=== PATIENT | male | born 1985 | race Caucasian/White ===

== ENCOUNTER 2016-07-05 07:11 | Day surgery (SDC) | payer OTHER, BC ==
[2016-06-25 09:11] VITALS: BMI 24.0
[~2016-07-05] VITALS: Ht 165.1 cm; Wt 67.3 kg
[~2016-07-05 07:11] MED LIST: ACET1TAB84 PO; ALBUAER2 INH; ARIP1TAB8 PO; BND25X PO; CHOL100010 PO; CLC100 PO; ECHCCRMCMP TOP; ESCI10TA17 PO; FLUT0.15 NAE; HYDR0.5T PO; IVIG IV; LACT3000 PO; LACTATED RINGER'S 1000ML 1,000 ML IV SCH; LEVO25TA5 PO; MONT1TAB3 PO; PRLSR20 PO; SALI1SPR3 NAE
[2016-07-05] MEDS ORDERED: LIDOCAINE HCL 2% 2 ML VIAL (20MG/ML) ONE (07:24)
[2016-07-05] MEDS ORDERED: PROPOFOL IV EMULSION 10 MG/ML 20 ML VIAL IV ONE (07:24)
[2016-07-05] MEDS ORDERED: ONDANSETRON INJ 2 MG/ML 2 ML VIAL ONE ×2 (07:24→10:21)
[2016-07-05] MEDS ORDERED: FENTANYL CITRATE INJ 50 MCG/1 ML 2 ML VIAL ONE ×2 (07:24→09:51)
[2016-07-05 07:43] VITALS: BP 116/63; PULSE 84; TEMP 36.5; O2SAT 97; Ht 165.1 cm; Wt 67.3 kg
[2016-07-05] MEDS ORDERED: SCOPOLAMINE 1.5 MG TDSY TD ONE (07:56)
[2016-07-05] MEDS ORDERED: NURSING VERBAL MED ORDER ONE (08:00)
[2016-07-05] MEDS ORDERED: SCOPOLAMINE 1.5 MG TDSY TD SCH (08:00)
[2016-07-05] MEDS ORDERED: CEFAZOLIN 2000 MG/60 ML D5W IV SCH (08:00)
[2016-07-05] MEDS ORDERED: LACTATED RINGER'S 1000ML 1,000 ML IV PRN (08:01)
[2016-07-05] MEDS ORDERED: THROMBIN FOR SOLN 20000 UNIT KIT ONE (08:11)
[2016-07-05] MEDS ORDERED: HEPARIN SOD (PORCINE) 1000 UNIT/ML 10 ML VIAL ONE (08:11)
[2016-07-05] MEDS ORDERED: CEFAZOLIN SOD 1 GM VIAL ONE (08:11)
[2016-07-05] MEDS ORDERED: LIDOCAINE HCL 1% 20 ML VIAL ONE (08:11)
--- NOTE | 2016-07-05 08:11 | Discharge Instructions ---
Discharge Instructions Visit Reason for Visit: POOR VENOUS ACCESS, IgG DEFICIENCY, DOWN SYNDROME Discharge Discharge Diagnosis / Problem: A-port placement Discharge Goals Goal(s): Improve disease control Activity Recommendations Activity Limitations: as noted below Shower/Bathe: keep incision dry (for 2 days) Anesthesia . Post Anesthesia Instructions: If you have had General Anesthesia or IV Sedation: * Do not drive today. * Resume driving when surgeon permits. * Do not make important decisions or sign legal documents today. * Call surgeon for: 1. Temperature elevations greater than 101 degrees F. 2. Uncontrollable pain. 3. Excessive bleeding. 4. Persistent nausea and vomiting. 5. Medication intolerance (nausea, vomiting or rash). * For nausea and vomiting use only clear liquids such as: tea, soda, bouillon until nausea subsides, then gradually increase diet as tolerated. * If you have any concerns or questions, call your surgeon's office. If physician is unavailable and it is an emergency, call 911 or go to the nearest emergency room. . Instructions / Follow-Up Instructions / Follow-Up Dr. Barr's office in 2 weeks for suture removal Diet Recommendations Recommended Home Diet: no limitations Pending Studies Studies pending at discharge: no Medical Emergencies . Who to Call and When: Medical Emergencies: If at any time you feel your situation is an emergency, please call 911 immediately. . Non-Emergent Contact Non-Emergency issues call your: Surgeon Call Non-Emergent contact if: you have a fever, temperature is above 101.5, your pain is not controlled, wound has increased redness . . "Provider Documentation" section prepared by Harvey Bell.
--- NOTE | 2016-07-05 08:11 | History & Physical Bridge Note ---
H&P Re-Evaluation Bridge Note: I have examined the patient, reviewed the History & Physical and in the interval since the performance of the History & Physical I have noted the following changes of clinical significance: No changes noted
[2016-07-05] MEDS ORDERED: ONDANSETRON INJ 2 MG/ML 2 ML VIAL IV PRN (08:15)
[2016-07-05 08:39] LABS: HEMATOCRIT 42.5 % (42-52); MEAN PLATELET VOLUME 9.8 fL (7.4-10.4); PLATELET COUNT 183 K/uL (130-400); RED BLOOD COUNT 4.67 M/uL (4.7-6.1)
[2016-07-05] MEDS ORDERED: OXYC1TAB3 PO (08:41)
[2016-07-05 08:51] LABS: BUN/CREATININE RATIO 17.7 (10-20); CALCIUM 8.9 mg/dl (8.5-10.1); POTASSIUM 4.7 mmol/L (3.5-5.1)
[2016-07-05] MEDS ORDERED: DEXAMETHASONE SOD INJ 4 MG/ML VIAL ONE ×2 (08:57→10:22)
[2016-07-05] MEDS ORDERED: EpHEDrine SULFATE 50MG/5ML SYR ONE (09:08)
[2016-07-05 09:11] LABS: MEAN CORPUSCULAR HGB CONC 36.2 g/dl (32-36)
--- NOTE | 2016-07-05 09:42 | Medical Student: [facility] ---
Immediate Operative Summary Operative Date Jul 05, 2016. Pre-Operative Diagnosis Need for vascular access Post-Operative Diagnosis Same as above Procedure(s) Performed L infusaport insertion Surgeon Dr. Acosta Barr [employer] Surgeon(s) Tamara Nath [id number] Estimated Blood Loss 10 cc Findings Catheter placed successfully in left subclavian vein Fluids (cc crystalloids) 500 cc Specimens None Drains None Anesthesia LMA Complication(s) None Disposition Recovery Room / PACU (In stable condition)
[2016-07-05] MEDS ORDERED: OXYCODONE HCL IR 5 MG TAB (IMMEDIATE RELEASE) PO PRN (09:45)
--- NOTE | 2016-07-05 10:04 | Anesthesiology Progress Note ---
Anesthesia Post Op Note Date & Time Jul 05, 2016 at 10:05 Vital Signs Pain Intensity: 5.0 Vital Signs Past 12 Hours Date Time Temp Pulse Resp B/P Pulse Ox O2 Delivery O2 Flow Rate FiO2 07/05/16 09:55 75 20 120/70 99 Nasal Cannula 3 07/05/16 09:45 94 20 110/64 100 Mask 10 07/05/16 09:39 36.5 81 20 124/70 95 Mask 10 07/05/16 07:43 36.5 84 18 116/63 97 Room Air Notes Mental Status: alert / awake / arousable, participated in evaluation Pt Amnestic to Procedure: Yes Nausea / Vomiting: adequately controlled Pain: adequately controlled Airway Patency, RR, SpO2: stable & adequate BP & HR: stable & adequate Hydration State: stable & adequate Anesthetic Complications: no major complications apparent
--- NOTE | 2016-07-05 10:08 | DIAGNOSTIC IMAGING REPORT ---
CHEST ONE VIEW PORTABLE CLINICAL HISTORY: port tube position COMPARISON STUDY: 03/03/2015 FINDINGS: Left-sided subclavian catheter place in superior vena cava. No evidence pneumothorax. Lungs are clear. IMPRESSION: Catheter place in superior vena cava. No evidence of pneumothorax. Electronically signed by: Carlos Alberto Grewal M.D. 07/05/2016 10:07 AM Dictated Date/Time: 07/05/2016 10:06 AM
--- NOTE | 2016-07-05 10:10 | OPERATIVE REPORT ---
DATE OF OPERATION: 07/05/2016 NAME OF OPERATION: Infusaport placement. PREOPERATIVE DIAGNOSIS: Poor intravenous access. POSTOPERATIVE DIAGNOSIS: Same. STAFF SURGEON: Dr. Barr. ANESTHESIA: 1% plain lidocaine with General LMA. DESCRIPTION OF PROCEDURE: The patient was brought in the operating room and placed on the operating table in supine position. His chest was prepped and draped in usual fashion. 0.5% plain Marcaine was used to anesthetize skin and subcutaneous tissue over the left deltopectoral groove. Dissection was carried down identifying a very small cephalic vein which was unable to be used for the catheter. The patient was placed in Trendelenburg position. Using a puncture technique, the left subclavian vein was localized, a wire passed under fluoroscopy and then a dilator and introducer passed over the wire. The dilator and wire removed. The catheter passed through the introducer, positioned appropriately under fluoroscopy and then the introducer removed. A pocket was fashioned in the chest wall. The port was attached to the catheter, placed into the pocket and secured to the chest wall using 3-0 Prolene suture. The port was aspirated and flushed with heparinized solution. The site was irrigated with antibiotic solution, then the subcutaneous tissue reapproximated using 2-0 plain and chromic catgut suture then the skin reapproximated using 4-0 nylon suture. The patient was transferred to recovery room in stable condition. I attest to the content of the Intraoperative Record and any orders documented therein. Any exceptio ns are noted below.
[2016-07-05] MEDS ORDERED: FENTANYL CITRATE INJ 50 MCG/1 ML 2 ML VIAL IV PRN (10:15)
[2016-07-05 10:20] VITALS: BP 124/70; PULSE 85; TEMP 36.6; O2SAT 98
[2016-07-05] MEDS ORDERED: DiphenhydrAMINE HCL 50 MG/ML VIAL ONE (10:22)
[2016-07-05] MEDS ORDERED: METOCLOPRAMIDE HCL INJ 5 MG/ML 2 ML VIAL ONE (10:22)
[2016-07-05 10:50] VITALS: BP 114/64; PULSE 83; O2SAT 98
[2016-07-05 11:15] VITALS: BP 102/56; PULSE 88; TEMP 36.6; O2SAT 98
[2016-07-05 11:30] VITALS: BP 102/56; PULSE 88; O2SAT 98
== END 2016-07-05 11:20 | disposition home or self-care (01) ==
LOC: C.ACU 07:11
PROVIDERS: ATTEND Surgery
DX: D80.3 Selective deficiency of immunoglobulin G [IgG] subclasses (principal); F84.0 Autistic disorder; K21.9 Gastro-esophageal reflux disease without esophagitis; J45.909 Unspecified asthma, uncomplicated; E03.9 Hypothyroidism, unspecified; D84.9 Immunodeficiency, unspecified; F42.9 Obsessive-compulsive disorder, unspecified; G47.33 Obstructive sleep apnea (adult) (pediatric); Q90.9 Down syndrome, unspecified; Z82.49 Family history of ischemic heart disease and other diseases of the circulatory system; Z80.42 Family history of malignant neoplasm of prostate; Z84.1 Family history of disorders of kidney and ureter; Z79.899 Other long term (current) drug therapy

== ENCOUNTER → 2016-10-19 | Outpatient (CLI) | payer OTHER, BC ==
[~2016-10-19] MED LIST changes: -LACTATED RINGER'S 1000ML 1,000 ML IV SCH; -LEVO25TA5 PO; +OXYC1TAB3 PO
--- NOTE | 2016-10-19 15:45 | DIAGNOSTIC IMAGING REPORT ---
LEFT HAND MIN 3 VIEWS ROUTINE CLINICAL HISTORY: NECK PAIN, JOINT CONTRACTURE OF HAND COMPARISON: None. DISCUSSION: The left fourth and to a lesser extent fifth fingers and phalanges are held in flexion. Osseous structures appear to be unremarkable throughout. There is no evidence for fracture. There is no dislocation. There are no abnormal soft tissue calcifications. There is no evidence for soft tissue swelling. IMPRESSION: The fourth and fifth fingers are held in flexion. The bony structures are otherwise unremarkable. Electronically signed by: Carlos Alberto Grewal M.D. 10/19/2016 3:43 PM Dictated Date/Time: 10/19/2016 3:42 PM
--- NOTE | 2016-10-19 15:50 | DIAGNOSTIC IMAGING REPORT ---
RIGHT HAND MIN 3 VIEWS ROUTINE CLINICAL HISTORY: NECK PAIN, JOINT CONTRACTURE OF HAND Right COMPARISON: None. DISCUSSION: The bones and joint spaces appear intact. There is no evidence of fracture, dislocation or bony disease. There is no evidence for soft tissue swelling. IMPRESSION: Negative study. Electronically signed by: Carlos Alberto Grewal M.D. 10/19/2016 3:49 PM Dictated Date/Time: 10/19/2016 3:49 PM
--- NOTE | 2016-10-19 15:54 | DIAGNOSTIC IMAGING REPORT ---
CERVICAL SPINE 5 VIEWS HISTORY: NECK PAIN, JOINT CONTRACTURE OF HAND COMPARISON: Cervical spine 07/09/2015. FINDINGS: The cervical spine is visualized from C1 through the superior endplate of T1. There is no fracture. Anterior cervical discectomy and fusion at C5-C7. The hardware appears intact. There is progressive bony fusion. Large anterior osteophytes at C4-C5 has increased in size. Mild disc space narrowing at C4-C5 and C3-C4 has slightly progressed. There is also progression of the reversal of the normal lordotic curvature within the cervical spine with the apex at the C4-C5 level. There is 1.5 mm of anterolisthesis of C4 on C5 which is not significantly changed. Mild dextroscoliosis, unchanged. Prevertebral soft tissues and the atlantodens interval are intact. IMPRESSION: 1. No acute fractures within the cervical spine. 2. Progressive reversal of the normal lordotic curvature with the apex at the C4-C5 level. 3. Progressive bony fusion at the C5-C7 ACDF. 4. Mild disc space narrowing at C3-C4 and C4-C5 which is also progressed. Electronically signed by: Abdifatah Solorzano M.D. 10/19/2016 3:53 PM Dictated Date/Time: 10/19/2016 3:48 PM
== END | disposition home or self-care (01) ==
LOC: C.RADBC 15:14
PROVIDERS: ATTEND Family Medicine
DX: M34.9 Systemic sclerosis, unspecified (principal); M24.549 Contracture, unspecified hand; M54.2 Cervicalgia; M40.202 Unspecified kyphosis, cervical region; M43.22 Fusion of spine, cervical region

== ENCOUNTER → 2016-12-09 | Outpatient (CLI) | payer OTHER, BC ==
--- NOTE | 2016-12-09 10:43 | DIAGNOSTIC IMAGING REPORT ---
CERVICAL SPINE CT CT DOSE: 1003.76 mGycm HISTORY: NECK PAIN TECHNIQUE: Multiaxial CT images of the cervical spine were performed and reformatted in the sagittal and coronal plane without the use of contrast. A dose lowering technique was utilized adhering to the principles of ALARA. COMPARISON: Cervical spine CT 11/16/2011. Cervical spine radiograph 10/19/2016. FINDINGS: There is again noted reversal of the normal lordotic curvature of the cervical spine. Anterior cervical discectomy and fusion at C5-C7. The hardware appears intact. The C5-C6 vertebral bodies are almost completely fused. The C6-C7 vertebral bodies are partially fused. Mild disc space narrowing at C3-C4 and C4-C5. No significant periprosthetic lucency. The hardware appears intact. Large anterior osteophytes at C4-C5. Stable mild rotary subluxation of C1 on C2. This is likely chronic. The C1-C2 interval is intact. Prevertebral soft tissues are within normal limits. The lung apices are clear. Nondisplaced subacute to chronic fracture within the left C4 pedicle and transverse process. This is partially healed. Evaluation the central canal is limited due to the CT technique. No significant central canal narrowing. Mild bilateral neural foraminal narrowing at C3-C4 and C6-C7. IMPRESSION: 1. Subacute to chronic healing nondisplaced fracture within the left C4 pedicle and transverse process. 2. Anterior cervical discectomy and fusion at C5-C7. The hardware appears intact. 3. Mild disc space narrowing at C3-C4 and C4-C5 4. Stable mild rotary subluxation of C1 on C2. This is likely chronic. 5. Reversal of the normal lordotic curvature. Electronically signed by: Abdifatah Solorzano M.D. 12/09/2016 10:42 AM Dictated Date/Time: 12/09/2016 10:30 AM
== END | disposition home or self-care (01) ==
LOC: C.CTS 10:11
PROVIDERS: ATTEND Orthopaedic Surgery
DX: M54.2 Cervicalgia (principal); S12.091D Other nondisplaced fracture of first cervical vertebra, subsequent encounter for fracture with routine healing; X58.XXXD Exposure to other specified factors, subsequent encounter; Z98.1 Arthrodesis status

== ENCOUNTER → 2017-11-23 | Outpatient (CLI) | payer OTHER, BC ==
[~2017-11-23] MED LIST changes: -OXYC1TAB3 PO; +SALI-3 NAE; -SALI1SPR3 NAE
--- NOTE | 2017-11-23 10:11 | DIAGNOSTIC IMAGING REPORT ---
KUB HISTORY: Acute generalized abdominal pain ABDOMINAL PAIN COMPARISON: Upper GI 05/26/2011, CT abdomen and pelvis 11/25/2010 FINDINGS: The bowel gas pattern is non-obstructive. A few air-fluid levels are noted within the right hemicolon. Surgical clips of the right upper quadrant abdomen suggest prior cholecystectomy. There is no organomegaly. Calcifications of the left hemipelvis suggest phleboliths. No renal calculi. No ureteral calculi. No pneumoperitoneum or pneumatosis. No fracture. Mild convex right curvature about the midthoracic spine. Multiple cannulated screws are seen about the right ilium. Subcortical cystic changes are noted involving the medial acetabula bilaterally. Prominence of the femoral head neck junctions are seen bilaterally with moderate osteoarthritis about the left hip. IMPRESSION: 1. Nonobstructive bowel gas pattern. 2. A few air-fluid levels within the right hemicolon may reflect diarrheal illness. 3. ORIF changes about the right iliac bone. 4. 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 Additionally, there is moderate superior joint space narrowing about the left femoral acetabular joint suggesting secondary osteoarthritis. Electronically signed by: Tyrone Azul M.D. 11/23/2017 10:10 AM Dictated Date/Time: 11/23/2017 10:05 AM
== END | disposition home or self-care (01) ==
LOC: C.RAD1850 09:39
PROVIDERS: ATTEND Student in an Organized Health Care Education/Training Program
DX: R10.84 Generalized abdominal pain (principal)